=== PATIENT | male | born 1950 | race African-American/Black ===

== ENCOUNTER 2019-05-30 13:37 | Emergency (ER) | payer MEDICARE, MEDICAID ==
[~2019-05-30] VITALS: Ht 188 cm; Wt 61.0 kg
[2019-05-30 15:11] LABS: EOSINOPHILS % 2.7 % (0.0-5.0); HEMATOCRIT. 42.4 % (42.0-52.0); LYMPHOCYTES % 37.7 % (20.0-50.0); MEAN CORPUSCULAR HEMOGLOBIN 29.7 pg (28.0-32.0); MEAN CORPUSCULAR VOLUME 90.3 fL (80.0-94.0); MONOCYTES % 14.8 % (2.0-8.0); NEUTROPHILS % 43.8 % (40.0-76.0); PLATELET 139 x1000/uL (130-400); RED CELL DISTRIBUTION WIDTH 14.6 % (11.6-14.6)
[2019-05-30 15:16] LABS: CHLORIDE 108 mEq/L (98-107)
[2019-05-30 15:17] LABS: PROTHROMBIN TIME 10.2 sec (9.6-11.0)
[2019-05-30 15:20] LABS: ETHANOL BLOOD < 10 mg/dL
[2019-05-30 15:23] LABS: LDL CHOLESTEROL 136 mg/dL (5-100)
[2019-05-30 15:25] LABS: CREATINE KINASE 58 IU/L (39-308)
[2019-05-30 15:47] VITALS: BP 143/73
[2019-05-30 15:55] LABS: CLARITY URINE CLEAR (CLEAR); COLOR URINE YELLOW (YELLOW); KETONES URINE NEGATIVE (NEGATIVE); LEUKOCYTE ESTERASE URINE NEGATIVE (NEGATIVE); NITRITE URINE NEGATIVE (NEGATIVE); OCCULT BLOOD URINE NEGATIVE (NEGATIVE); PROTEIN URINE NEGATIVE (NEGATIVE); SPECIFIC GRAVITY URINE 1.018 (1.005-1.030); UROBILINOGEN URINE 0.2 E.U./dL (0.2-1.0)
[2019-05-30 16:14] LABS: *BARBITURATES SCREEN URINE NEGATIVE (NEGATIVE); *BENZODIAZEPINES SCREEN URINE NEGATIVE (NEGATIVE); *COCAINE SCREEN URINE NEGATIVE (NEGATIVE)
[2019-05-30 16:15] LABS: *AMPHETAMINES SCREEN URINE NEGATIVE (NEGATIVE); CANNABINOID URINE SCREEN NEGATIVE (NEGATIVE); METHADONE URINE SCREEN NEGATIVE (NEGATIVE); PHENCYCLIDINE URINE SCREEN NEGATIVE (NEGATIVE)
[2019-05-30 16:24] LABS: OPIATES URINE SCREEN PRESUMTIVE POSITIVE (NEGATIVE)
[2019-05-30] MEDS ORDERED: PREDNISONE 20MG TABLET PO ONE (17:00)
== END 2019-05-30 17:26 | disposition home or self-care (01) ==
LOC: ER 13:37
DX: R22.0 Localized swelling, mass and lump, head (principal); I10 Essential (primary) hypertension; Z86.73 Personal history of transient ischemic attack (TIA), and cerebral infarction without residual deficits
CPT/HCPCS: 36415; 70450; 70551; 71045; 72125; 80053; 80305; 80320; 81003; 82550; 82962; 83690; 83721; 83880; 84484; 85025; 85610; 93005; 99284; J7512; G0480

== ENCOUNTER 2020-10-10 17:21 | Emergency (ER) | payer MEDICARE, MEDICAID ==
[~2020-10-10] VITALS: Ht 188 cm; Wt 80.0 kg
[2020-10-10] MEDS ORDERED: MECLIZINE 25MG TABLET PO ONE (17:45)
[2020-10-10 18:43] LABS: BASOPHILS % 0.4 % (0.0-2.0); EOSINOPHILS % 2.5 % (0.0-5.0); HEMATOCRIT. 37.4 % (42.0-52.0); HEMOGLOBIN. 12.6 g/dL (14.0-18.0); MEAN CORPUSCULAR VOLUME 89.3 fL (80.0-94.0); MEAN PLATELET VOLUME 10.7 fl (7.4-10.4); NEUTROPHILS % 60.1 % (40.0-76.0); PLATELET 150 x1000/uL (130-400); RED BLOOD CELL COUNT 4.19 mill/uL (4.7-6.1); RED CELL DISTRIBUTION WIDTH 14.3 % (11.6-14.6)
[2020-10-10 18:54] LABS: CHLORIDE 106 mEq/L (98-107)
[2020-10-10 21:03] VITALS: BP 121/74
== END 2020-10-10 21:06 | disposition home or self-care (01) ==
LOC: ER 17:21
DX: R42 Dizziness and giddiness (principal); Z86.73 Personal history of transient ischemic attack (TIA), and cerebral infarction without residual deficits; J44.9 Chronic obstructive pulmonary disease, unspecified; I10 Essential (primary) hypertension
CPT/HCPCS: 36415; 70450; 71045; 80053; 85025; 93005; 99285; J8597